=== PATIENT | female | born 1975 | race Caucasian/White ===

== ENCOUNTER 2023-03-25 18:25 | Emergency (ER) | payer MEDICAID ==
[2023-03-25] MEDS ORDERED: Ketorolac 60 MG/2 ML SDV IM ONE (19:39)
[2023-03-25] MEDS ORDERED: cefTRIAXone 1 GM Vial IM ONE (19:39)
[2023-03-25] MEDS ORDERED: cefTRIAXone 1 GM Vial ONE (19:41)
[2023-03-25] MEDS ORDERED: Ketorolac 60 MG/2 ML SDV ONE (19:41)
[2023-03-25] MEDS ORDERED: Lidocaine 1% 5 ML VIAL INJECT ONE (19:50)
== END 2023-03-25 19:52 | disposition home or self-care (01) ==
LOC: LB.ED 18:25
DX: J02.9 Acute pharyngitis, unspecified (principal); F17.210 Nicotine dependence, cigarettes, uncomplicated; Z98.890 Other specified postprocedural states
CPT/HCPCS: 96372; 99283; J0696; J1885

== ENCOUNTER 2023-05-14 20:41 | Emergency (ER) | payer MEDICAID ==
[2023-05-14] MEDS ORDERED: Sodium Chloride 0.9% 10 ML Syringe FLUSH PRN (20:57)
[2023-05-14] MEDS ORDERED: Sodium Chloride 0.9% 1,000 ML IV ONE (21:01)
[2023-05-14 21:23] LABS: BASOPHILS ABSOLUTE AUTO 0.01 K/uL (0.02-0.10); BASOPHILS PERCENT AUTO 0.1 % (0.0-0.5); EOSINOPHILS ABSOLUTE AUTO 0.01 K/uL (0.04-0.40); EOSINOPHILS PERCENT AUTO 0.1 % (1.0-5.0); HEMATOCRIT 42.1 % (37.0-47.0); HEMOGLOBIN 13.7 g/dL (11.5-16.5); LYMPHOCYTES ABSOLUTE AUTO 0.66 K/uL (1.50-4.00); MEAN CORPUSCULAR HEMOGLOBIN 33.9 pg (27.0-32.0); MEAN CORPUSCULAR HGB CONC 32.5 g/dL (31.0-35.0); MEAN CORPUSCULAR VOLUME 104 fL (76-96); MEAN PLATELET VOLUME 10.2 fL (6.0-10.0); MONOCYTES ABSOLUTE AUTO 1.12 K/uL (0.20-0.80); MONOCYTES PERCENT AUTO 10.2 % (3.0-10.0); NEUTROPHILS PERCENT AUTO 83.6 % (45.0-70.0); PLATELET COUNT,PLT 270 K/uL (150-500); RED BLOOD CELL COUNT 4.04 M/uL (3.80-5.80); RED CELL DISTRIBUTION WIDTH 14.9 % (11.0-16.0)
[2023-05-14 21:24] LABS: APPEARANCE,URINE CLOUDY (CLEAR); BILIRUBIN,URINE NEGATIVE (NEGATIVE); COLOR,URINE YELLOW; GLUCOSE,URINE NEGATIVE (NEGATIVE); KETONES,URINE NEGATIVE (NEGATIVE); LEUKOCYTE ESTERASE,URINE SMALL (NEGATIVE); NITRITE,URINE NEGATIVE (NEGATIVE); OCCULT BLOOD,URINE MODERATE (NEGATIVE); PROTEIN,URINE NEGATIVE (NEGATIVE); UROBILINOGEN,URINE 0.2 E.U./dL (0.2-1.0)
[2023-05-14 21:37] LABS: RBC,URINE 0-5 /HPF; SQUAMOUS EPITHELIAL CELLS,UR FEW /HPF
[2023-05-14 21:38] LABS: AMORPHOUS SEDIMENT,URINE MODERATE /HPF
[2023-05-14 21:43] LABS: A/G RATIO 1.1 (0.8-2.0); ALBUMIN 3.6 g/dL (3.4-5.0); BILIRUBIN TOTAL 0.7 mg/dL (0.0-1.0); BUN/CREATININE RATIO 20.5 (6-25); CALCIUM 10.2 mg/dL (8.5-10.1); CREATININE 1.85 mg/dL (0.55-1.02); EST CRCL DRUG DOSING (CG) 20.84 mL/min; POTASSIUM,K 3.9 mmol/L (3.5-5.1)
[2023-05-14 21:45] LABS: ANION GAP 12.9 mmol/L (5.0-15.0)
[2023-05-14] MEDS ORDERED: Dextrose 5% in Water 1,000 ML IV SCH (22:45)
[2023-05-14] MEDS ORDERED: Non-Formulary Medication 1 Each (Fluticasone Propionate [Flovent] 50 MCG Blst.W.Dev) INH PRN (22:53)
[2023-05-14] MEDS ORDERED: ONDANSETRON 8 MG PO PRN (22:53)
[2023-05-15] MEDS ORDERED: Sodium Chloride 0.9% 1,000 ML IV ONE ×2 (00:01→12:20)
[2023-05-15] MEDS: Nitrofurantoin Macrocrystal 50 MG Cap PO SCH ×4 (00:32→12:30)
[2023-05-15] MEDS ORDERED: Ondansetron 4 MG Tab.DIS PO PRN (03:11)
[2023-05-15] MEDS ORDERED: FAMOTIDINE 40 MG/5 ML GTUBE SCH (08:00)
[2023-05-15] MEDS ORDERED: SENNA 8.8 MG/5 ML GTUBE SCH (08:00)
[2023-05-15] MEDS ORDERED: NICOTINE 21 MG/24 HR TOP SCH (08:00)
[2023-05-15] MEDS ORDERED: Folic Acid 1 MG Tab PO SCH (08:00)
[2023-05-15] MEDS ORDERED: Cyclobenzaprine 10 MG Tab GTUBE SCH (08:00)
[2023-05-15] MEDS ORDERED: Folic Acid 1 MG Tab **OWN MED PO SCH (08:00)
[2023-05-15] MEDS ORDERED: Famotidine 20 MG Tab GTUBE SCH (08:00)
[2023-05-15] MEDS: GABAPENTIN 250 MG/5 ML GTUBE SCH ×2 (08:29→14:06)
[2023-05-15 08:30] LABS: EOSINOPHILS ABSOLUTE AUTO 0.01 K/uL (0.04-0.40); EOSINOPHILS PERCENT AUTO 0.1 % (1.0-5.0); HEMATOCRIT 39.9 % (37.0-47.0); HEMOGLOBIN 12.5 g/dL (11.5-16.5); LYMPHOCYTES ABSOLUTE AUTO 0.82 K/uL (1.50-4.00); LYMPHOCYTES PERCENT AUTO 6.5 % (20.0-40.0); MEAN CORPUSCULAR HEMOGLOBIN 33.5 pg (27.0-32.0); MEAN CORPUSCULAR HGB CONC 31.3 g/dL (31.0-35.0); MEAN CORPUSCULAR VOLUME 107 fL (76-96); MEAN PLATELET VOLUME 10.4 fL (6.0-10.0); MONOCYTES ABSOLUTE AUTO 1.34 K/uL (0.20-0.80); MONOCYTES PERCENT AUTO 10.6 % (3.0-10.0); NEUTROPHILS ABSOLUTE AUTO 10.47 K/uL (2.00-7.50); NEUTROPHILS PERCENT AUTO 82.8 % (45.0-70.0); PLATELET COUNT,PLT 225 K/uL (150-500); RED BLOOD CELL COUNT 3.73 M/uL (3.80-5.80); WHITE BLOOD CELL COUNT,WBC 12.6 K/uL (4.0-11.0)
[2023-05-15 08:58] LABS: A/G RATIO 1.1 (0.8-2.0); BILIRUBIN TOTAL 0.7 mg/dL (0.0-1.0); BUN/CREATININE RATIO 26.8 (6-25); CALCIUM 9.1 mg/dL (8.5-10.1); CARBON DIOXIDE,CO2 30.5 mmol/L (21.0-32.0); CREATININE 1.49 mg/dL (0.55-1.02); EST CRCL DRUG DOSING (CG) 28.14 mL/min; POTASSIUM,K 4.6 mmol/L (3.5-5.1); PROTEIN TOTAL,TP 5.8 g/dL (6.4-8.2)
[2023-05-15 09:16] LABS: ANION GAP 13.1 mmol/L (5.0-15.0); MAGNESIUM 3.6 mg/dL (1.8-2.4)
[2023-05-15] MEDS ORDERED: cefTRIAXone 1 GM in Sodium Chloride 0.9% 50 ML IV SCH (15:00)
[2023-05-15] MEDS ORDERED: DESMOPRESSIN 0.1 MG GTUBE SCH (20:00)
[2023-05-16] MEDS ORDERED: Famotidine 20 MG Tab GTUBE SCH (08:00)
== END 2023-05-15 14:50 ==
LOC: LB.ED 20:41 → LB.MS 22:46 → UNDOADMOB 23:01 → LB.MS 23:01 → UNDODISOB 05-15 14:50
PROVIDERS: ADMIT Nurse Practitioner Family; ATTEND Nurse Practitioner Family
DX: N39.0 Urinary tract infection, site not specified (principal); E86.0 Dehydration; E87.0 Hyperosmolality and hypernatremia; E83.41 Hypermagnesemia; R09.02 Hypoxemia; K59.00 Constipation, unspecified; R53.1 Weakness; R31.9 Hematuria, unspecified; R74.01 Elevation of levels of liver transaminase levels; R79.89 Other specified abnormal findings of blood chemistry; Z79.899 Other long term (current) drug therapy
CPT/HCPCS: 36415; 51702; 71250; 74176; 80053; 81001; 82947; 83735; 85025; 87086; 93005; 93010; 96360; 96361; 99285-25; A0425; A0429; A9270-GY; G0378; J7030; J7060

== ENCOUNTER 2023-08-06 16:17 | Emergency (ER) | payer MEDICAID ==
[2023-08-06 17:43] LABS: HEMATOCRIT 30.8 % (37.0-47.0); MEAN CORPUSCULAR HEMOGLOBIN 37.9 pg (27.0-32.0); MEAN CORPUSCULAR HGB CONC 32.5 g/dL (31.0-35.0); MEAN CORPUSCULAR VOLUME 117 fL (76-96); MEAN PLATELET VOLUME 9.1 fL (6.0-10.0); PLATELET COUNT,PLT 405 K/uL (150-500); RED BLOOD CELL COUNT 2.64 M/uL (3.80-5.80); RED CELL DISTRIBUTION WIDTH 16.7 % (11.0-16.0); WHITE BLOOD CELL COUNT,WBC 3.7 K/uL (4.0-11.0)
[2023-08-06 18:00] LABS: ANISOCYTOSIS OCCASIONAL; PHOSPHORUS 3.5 mg/dL (2.5-4.9); TEARDROP CELLS OCCASIONAL
[2023-08-06 18:02] LABS: PLATELET COUNT ESTIMATE ADEQUATE
[2023-08-06 18:03] LABS: A/G RATIO 1.1 (0.8-2.0); ALBUMIN 3.2 g/dL (3.4-5.0); ANION GAP 10.3 mmol/L (5.0-15.0); BILIRUBIN TOTAL 0.4 mg/dL (0.0-1.0); BUN/CREATININE RATIO 31.3 (6-25); CALCIUM 8.9 mg/dL (8.5-10.1); CARBON DIOXIDE,CO2 32.5 mmol/L (21.0-32.0); CREATININE 0.64 mg/dL (0.55-1.02); EST CRCL DRUG DOSING (CG) 64.76 mL/min; POTASSIUM,K 4.8 mmol/L (3.5-5.1)
[2023-08-06] MEDS ORDERED: Cyclobenzaprine 10 MG Tab ONE (18:15)
== END 2023-08-06 18:22 | disposition home or self-care (01) ==
LOC: LB.ED 16:17
DX: R25.1 Tremor, unspecified (principal); Z79.899 Other long term (current) drug therapy
CPT/HCPCS: 36415; 80053; 83735; 84100; 85025; 99283; A9270

== ENCOUNTER 2023-09-25 22:36 | Emergency (ER) | payer MEDICAID ==
[2023-09-26 00:33] LABS: HEMOGLOBIN 11.6 g/dL (11.5-16.5); MEAN CORPUSCULAR HEMOGLOBIN 37.1 pg (27.0-32.0); MEAN CORPUSCULAR HGB CONC 33.1 g/dL (31.0-35.0); MEAN PLATELET VOLUME 10.1 fL (6.0-10.0); PLATELET COUNT,PLT 169 K/uL (150-500); RED BLOOD CELL COUNT 3.13 M/uL (3.80-5.80); RED CELL DISTRIBUTION WIDTH 13.5 % (11.0-16.0); WHITE BLOOD CELL COUNT,WBC 6.7 K/uL (4.0-11.0)
[2023-09-26 00:38] LABS: MEAN CORPUSCULAR VOLUME 112 fL (76-96)
[2023-09-26 00:44] LABS: ALBUMIN 3.2 g/dL (3.4-5.0); ANION GAP 7.9 mmol/L (5.0-15.0); BILIRUBIN TOTAL 0.5 mg/dL (0.0-1.0); BUN/CREATININE RATIO 37.3 (6-25); CALCIUM 8.9 mg/dL (8.5-10.1); CARBON DIOXIDE,CO2 32.1 mmol/L (21.0-32.0); CREATININE 0.51 mg/dL (0.55-1.02); EST CRCL DRUG DOSING (CG) 76.54 mL/min; PHOSPHORUS 3.3 mg/dL (2.5-4.9); PROTEIN TOTAL,TP 6.3 g/dL (6.4-8.2)
[2023-09-26 00:58] LABS: ANISOCYTOSIS MODERATE; MICROCYTOSIS FEW; TARGET CELLS OCCASIONAL
[2023-09-26 00:59] LABS: PLATELET COUNT ESTIMATE ADEQUATE
== END 2023-09-26 01:30 | disposition home or self-care (01) ==
LOC: LB.ED 22:36
DX: R11.11 Vomiting without nausea (principal); R53.81 Other malaise; I10 Essential (primary) hypertension; F17.210 Nicotine dependence, cigarettes, uncomplicated; Z79.899 Other long term (current) drug therapy; Z86.19 Personal history of other infectious and parasitic diseases
CPT/HCPCS: 36415; 80053; 83735; 84100; 85025; 99284

== ENCOUNTER 2023-10-25 13:29 | Emergency (ER) | payer MEDICAID | END 2023-10-25 15:30 | disposition home or self-care (01) | LOC: LB.ED 13:29 | DX: R09.02 Hypoxemia (principal); I10 Essential (primary) hypertension; Z79.899 Other long term (current) drug therapy | CPT/HCPCS: 71045; 99283; 99284 ==